=== PATIENT | male | born 1985 | race African-American/Black ===

== ENCOUNTER 2023-07-13 07:44 | Emergency (ER) | payer BC ==
[~2023-07-13] VITALS: Ht 175.3 cm; Wt 59.0 kg
[2023-07-13 07:53] VITALS: O2SAT 100
[2023-07-13] MEDS ORDERED: LACTATED RINGERS 1,000 ML IV SCH (08:15)
[2023-07-13 08:58] LABS: CHLORIDE 115 mEq/L (98-107); INDEX HEMOLYSI 2 (1-3); INDEX ICTERIC 1 (1-4); INDEX LIPEMIC 1 (1-3); POTASSIUM 3.4 mEq/L (3.5-5.1); SODIUM 130 mEq/L (136-145)
[2023-07-13 09:09] LABS: ALANINE AMINOTRANSFERASE 30 IU/L (13-61); ALBUMIN 4.1 g/dL (3.4-5.0); ASPARTATE AMINOTRANSFERASE 22 IU/L (15-37); BILIRUBIN TOTAL 1.2 mg/dL (0.1-1.0); CALCIUM 9.3 mg/dL (8.5-10.1); CARBON DIOXIDE 22 mEq/L (21-32); CREATININE 0.8 mg/dL (0.6-1.3); GLUCOSE 118 mg/dL (70-105); PROTEIN TOTAL 7.8 g/dL (6.0-8.3); UREA NITROGEN BLOOD 7 mg/dL (7-21)
[2023-07-13 09:34] LABS: HEMATOCRIT. 42.7 % (42.0-52.0); HEMOGLOBIN. 14.5 g/dL (14.0-18.0); MEAN CORPUSCULAR HEMOGLOBIN 29.2 pg (28.0-32.0); MEAN CORPUSCULAR HGB CONC 33.9 g/dL (31.0-37.0); MEAN CORPUSCULAR VOLUME 86.1 fL (80.0-94.0); MEAN PLATELET VOLUME 7.6 fl (7.4-10.4); PLATELET 238 x1000/uL (130-400); RED BLOOD CELL COUNT 4.96 mill/uL (4.7-6.1); RED CELL DISTRIBUTION WIDTH 12.7 % (11.6-14.6)
[2023-07-13 09:35] LABS: DIFFERENTIAL COMMENT 1; WHITE BLOOD COUNT 7.2 x1000/uL (4.5-11.0)
[2023-07-13 09:42] LABS: PLATELET ESTIMATE NORMAL
[2023-07-13 10:14] LABS: CLARITY URINE CLEAR (CLEAR); COLOR URINE YELLOW (YELLOW); GLUCOSE URINE NEGATIVE (NEGATIVE); KETONES URINE 3+ (NEGATIVE); LEUKOCYTE ESTERASE URINE TRACE (NEGATIVE); NITRITE URINE NEGATIVE (NEGATIVE); OCCULT BLOOD URINE NEGATIVE (NEGATIVE); PROTEIN URINE NEGATIVE (NEGATIVE); UROBILINOGEN URINE 0.2 E.U./dL (0.2-1.0)
[2023-07-13 10:16] LABS: RBC URINE NONE SEEN /hpf (0-2); SQUAMOUS EPITHELIAL CELL URINE NONE SEEN /lpf (RARE/1+); YEAST URINE NONE SEEN
[2023-07-13 10:44] LABS: BACTERIA URINE RARE; WBC URINE 0-2 /hpf (0-2)
[2023-07-13 11:30] VITALS: BP 116/74; PULSE 98; RESP 20; TEMP 98.8
== END 2023-07-13 11:38 | disposition home or self-care (01) ==
LOC: ER 07:59
DX: R53.1 Weakness (principal)
CPT/HCPCS: 80053; 81003; 83690; 85025; 36415; 71045; 93005; 96360; 99285; Z7610 ×3